=== PATIENT | male | born 1955 | race Hispanic/Latino ===

== ENCOUNTER 2024-12-04 12:54 | Observation (INO) | payer OTHER ==
[~2024-12-04] VITALS: Ht 170.2 cm; Wt 81.6 kg
[2024-12-04 14:11] LABS: IMMATURE GRANULOCYTE ABSOLUTE 0.03 K/uL (0-1); NUCLEATED RED BLOOD CELLS 0.0 % (0.0-0.19); PLATELET COUNT (AUTO) 269 K/uL (130-400); RED BLOOD CELL COUNT(AUTO) 6.30 MIL/uL (4.50-6.20); RED CELL DISTRIBUTION WIDTH 13.7 % (11.0-15.5); WHITE BLOOD COUNT (AUTO) 7.1 K/uL (4.8-10.8)
[2024-12-04 14:12] LABS: CREATININE 1.2 mg/dL (0.5-1.3); GLOMERULAR FILTR. RATE CALC 66.0 mL/min (>90); GLUCOSE,RANDOM 114.0 mg/dL (70-105); SODIUM SERUM 136.0 mmol/L (136-145); UREA NITROGEN, BLOOD 16.0 mg/dL (7-18)
[2024-12-04 14:25] LABS: INR 1.0 (0.85-1.15)
--- NOTE | 2024-12-04 14:51 | HMCIMG ---
EXAM: CR Chest, 1 View. CLINICAL HISTORY: shortness of breath COMPARISON: 12/03 8:17 EDT CR - CHEST 1VW FINDINGS: LUNGS: The lungs show no infiltrate or other acute finding. PLEURAL SPACES: No evidence of pleural effusion or pneumothorax. MEDIASTINUM: Cardiac size and mediastinal contours within normal limits. BONES: No acute osseous abnormality. IMPRESSION: No acute cardiopulmonary pathology is evident. /[place]
--- NOTE | 2024-12-04 16:00 | ERN ---
General Chief Complaint: Other Problems Stated Complaint: ABNORMAL EKG Time Seen by MD: 13:01 History of Present Illness Initial Comments 69-year-old male sent by risk specialist for palpitation. Patient was found to be in atrial fibrillation with rapid ventricular response with the clinic. Patient otherwise has no concerns. Allergies: Coded Allergies: No Known Drug Allergies (Unverified Allergy, Unknown, 12/03/24) Past Medical History Past Medical History: Hypertension, Hypothyroid Past Surgical History: Cholecystectomy, Other Surgical History Other: prostate sx ROS Dictation Palpitations Physical Exam General Appearance: (+) no apparent distress Neck: (+) normal inspection, (+) supple Respiratory: (+) chest non-tender, (+) lungs clear Heart: (+) regular, (+) no gallop Vascular: (+) no edema, (+) normal peripheral pulse Gastrointestinal: (+) soft, (+) non-tender, (+) no organomegaly, (+) bowel sound present Results Laboratory and Microbiology Lab and Micro Result Laboratory Tests Test 12/04/24 13:27 White Blood Count 7.1 K/uL (4.8-10.8) Red Blood Count 6.30 MIL/uL (4.50-6.20) H Hemoglobin 18.5 g/dL (14.0-18.0) H Hematocrit 54.0 % (42-54) Mean Corpuscular Volume 85.7 fL (79-99) Mean Corpuscular Hemoglobin 29.4 pg (27.0-33.0) Mean Corpuscular Hemoglobin Concent 34.3 g/dL (32.0-36.0) Red Cell Distribution Width 13.7 % (11.0-15.5) Platelet Count 269 K/uL (130-400) # Mean Platelet Volume 10.1 fL (7.5-10.5) Immature Granulocyte % (Auto) 0.4 % (0-1) Neutrophils (%) (Auto) 60.5 % (40.0-77.0) Lymphocytes (%) (Auto) 30.5 % (21.0-51.0) Monocytes (%) (Auto) 8.2 % (3.0-13.0) Eosinophils (%) (Auto) 0.1 % (0.0-8.0) Basophils (%) (Auto) 0.3 % (0.0-5.0) Neutrophils # (Auto) 4.3 K/uL (1.8-7.7) Lymphocytes # (Auto) 2.2 K/uL (1.0-4.8) Monocytes # (Auto) 0.6 K/uL (0.1-1.0) Eosinophils # (Auto) 0.01 K/uL (0.00-0.70) Basophils # (Auto) 0.02 K/uL (0.00-0.20) Absolute Immature Granulocyte (auto 0.03 K/uL (0-1) Nucleated Red Blood Cells 0.0 % (0.0-0.19) Prothrombin Time 10.6 SEC (9.6-11.6) Prothromb Time International Ratio 1.00 (0.85-1.15) Activated Partial Thromboplast Time 29.9 SEC (26.3-35.5) Sodium Level 136 mmol/L (136-145) Potassium Level 3.9 mmol/L (3.5-5.1) Chloride Level 97 mmol/L (101-111) L Carbon Dioxide Level 33 mmol/L (21-32) H Blood Urea Nitrogen 16 mg/dL (7-18) Creatinine 1.2 mg/dL (0.5-1.3) Glomerular Filtration Rate Calc 66 mL/min (>90) Random Glucose 114 mg/dL (70-105) H Total Calcium 9.4 mg/dL (8.5-10.1) Troponin I High Sensitivity 24 ng/L (4-75) MDM MDM: Differential diagnosis: Rationale: Tests considered and ordered secondary to shared decision making include: labs, ECG and radiology Previous outside records reviewed: Old ER visits. Risk of complication and/or morbidity or mortality of patient management: None Medications-Per medication reconciliation Need for hospitalization: Patient does meet criteria for hospitalization. Need for emergency major/minor surgery: No There are no social concerns with this patient. Prescription drug management Prescriptions will include symptomatic care Patient's prior external medical records from other ER visits were reviewed by me as indicated. Prior testing and results from previous visits were reviewed. Prior tests were taken into account with medical decision making and resource utilization, independent historian/historians were used to obtain complete medical history. I independently interpreted the test that were performed, results were reviewed by me and considered findings on radiology if ordered. Medical management and examination interpretation discussions were had by me with other qualified healthcare professionals as indicated for the patient's care. ED Course Orders Procedure Category Date Status Time 12 Lead Ekg Tracing- EKG 12/04/24 Logged Technical 13:01 12 Lead Ekg Tracing- EKG 12/04/24 Logged Technical 13:02 Cbc With Differential LAB 12/04/24 Complete 13:02 Basic Metabolic Panel LAB 12/04/24 Complete 13:02 Pt And Ptt LAB 12/04/24 Complete 13:02 Troponin I High LAB 12/04/24 Complete Sensitivity 13:02 Chest 1vw RAD 12/04/24 Resulted 13:02 Metoprolol Tartrate PHA 12/04/24 Complete (Lopressor) 15:00 Current Medications Medications (Trade) Dose Ordered Sig/Jesus Route PRN Reason Start Time Stop Time Status Last Admin Dose Admin Metoprolol Tartrate (loprESSOR) 5 mg ONCE ONCE IV 12/04/24 15:00 12/04/24 15:05 DC 12/04/24 15:01 Vital Signs Date Time Temp Pulse Resp B/P (MAP) Pulse Ox O2 Delivery O2 Flow Rate FiO2 12/04/24 15:01 82 100/68 12/04/24 14:29 112 18 112/72 99 Room Air* 0 21 12/04/24 13:00 97.9 80 16 126/76 99 Room Air* 0 21 12/04/24 12:56 97.9 80 16 126/76 99 Room Air 0 DX & DISP Disposition: Inpatient Departure Impression: Primary Impression: Atrial fibrillation Condition: Stable Referrals: KOLE WARREN M.D. (PCP) VIBHA BAUTISTA MD Dec 04, 2024 16:00
[2024-12-04 16:55] LABS: CREATINE KINASE, TOTAL 64.0 U/L (21-232)
[2024-12-04 19:00] VITALS: BP_SYST 114; BP_SYST 124; BP_DIAS 62; BP_DIAS 74; PULSE 80; PULSE 83; RESP 18; RESP 20; TEMP 97.9; TEMP 98; O2SAT 97
--- NOTE | 2024-12-04 21:21 | CONS ---
CONSULT NOTE: CARDIOLOGY Reason for consult: Atrial fibrillation HPI/story at presentation: This is a pleasant 69-year-old male with past medical history of depression with complaints of shortness of breath fatigue and was found to be in atrial fibrillation with RVR during office visit, 11/2024. He was in the ER for further evaluation and management received IV dose of metoprolol in the ER with conversion to normal sinus rhythm Subjective: 12/04/2024 shortness of breath, tightness Past medical history: See below Allergies, Meds See chart Review of systems Review of Systems Constitutional: Negative for chills and fever. HENT: Negative for ear discharge and ear pain. Eyes: Negative for photophobia and discharge. Respiratory: Negative for cough, sputum production and stridor. Cardiovascular: Negative for chest pain and palpitations. Gastrointestinal: Negative for diarrhea and vomiting. Genitourinary: Negative for frequency. Musculoskeletal: Negative for myalgias. Skin: Negative for rash. Neurological: Negative for focal weakness and seizures. Endo/Heme/Allergies: Negative for polydipsia. Psychiatric/Behavioral: Negative for hallucinations. Vitals see chart PHYSICAL EXAMINATION GENERAL: The patient is alert and oriented*3 HEENT: Nonicteric sclerae, non traumatic HEART: Regular rate and rhythm with no murmurs LUNGS: Clear to auscultation bilaterally ABDOMEN: No acute issues, non tender GENITAL, RECTAL: deferred SKIN: No rash NEUROLOGIC: NFND EXTREMITIES: No edema ASSESSMENT ATRIAL FIBRILLATION With RVR at presentation Heart rates in the 140s Started on anticoagulation with heparin, 11/2024 On beta-ade, 11/2024 Echocardiogram ordered, 11/2024 with normal ejection fraction HYPERTENSION HYPERLIPIDEMIA DIABETES CORE MEASURES Pending OTHER MEDICAL PROBLEMS Benign prostatic hypertrophy Hypothyroidism Cholecystectomy TURP PLAN 12/04/2024 patient has converted to normal sinus rhythm. Overall, doing well, symptoms are better, patient does not feel tired anymore. Can start an ticoagulation. Seen and examined 12/04/2024 at around 8 PM. ATTESTATION I was involved substantially in the care of this patient Number and complexity of problems addressed: 1 acute illness with systemic features Amount and or complexity of data Review of prior external note(s) from each unique source: 2+ Ordering of each unique test : 0 Review of the result(s) of each unique test: 2+ Assessment requiring an independent historian(s): No Independent interpretation of test performed by another MD/QHCP/appropriate source (not separately reported) : No Discussion of management or test interpretation with external MD/QHCP/appropriate source (not separately reported) : No Risk status (cardiac, billing related): Moderate CORNELL KAISER MD Dec 04, 2024 21:21
[2024-12-04 21:54] LABS: CREATINE KINASE, TOTAL 60.0 U/L (21-232)
--- NOTE | 2024-12-04 22:11 | HP ---
[facility] HISTORY & PHYSICAL Date Patient Seen: Dec 04, 2024 Time of Visit: 22:02 Supervising Physician: DR. BREANA ARZATE Primary Care Physician: [ ] Outpatient Specialists: [ ] Inpatient Consults: [employer]ATIONS PROBLEM LIST: 1. AFib with RVR 2. Unstable angina 3. Diabetes type 2 Chief complaint: Chest pressure, palpitations. HPI: Patient is a 69-year-old male with past medical history significant for hypertension, hyperlipidemia, hypothyroidism, diabetes type 2, BPH, and a surgical history of cholecystectomy, TURP, referred to the emergency department by PCP for evaluation of new onset of atrial fibrillation with rapid ventricular response. Patient reports that for the past two days, he has been experiencing chest pressure on and off, today, started having palpitations. Patient was seen by his PCP who referred him to the emergency department for further evaluation and treatment. Per ER report, patient was on AFib with RVR and was given metoprolol 5 mg IV push. At the time of the assessment, patient was on normal sinus rhythm with heart rate in the 80s. In addition, certified marine mechanic has been consulted. PAST MEDICAL HX: see above PAST SURGICAL HX: noncontributory SOCIAL HISTORY: No tobacco, ETOH, or illicit drug use Coded Allergies: No Known Drug Allergies (Unverified Allergy, Unknown, 12/03/24) REVIEW OF SYSTEMS: 12 point ROS reviewed with patient. Pertinent positives mentioned above. Otherwise negative. PHYSICAL EXAM: GENERAL: alert, weak, awake oriented x 3 HEENT: EOMI, Sclera non icteric, moist mucosa NECK: Supple, no JVD, trachea midline LUNGS: Clear breath sounds bilaterally. No wheezes HEART: Regular rate and rhythm. Normal S1 and S2, without murmurs ABD: Abdomen soft, nontender. Bowel sounds present EXT: No clubbing cyanosis or edema NEURO: Alert and oriented to person, follows commands Vital Signs (last 8hr) Date Time Temp Pulse Resp B/P (MAP) Pulse Ox O2 Delivery O2 Flow Rate FiO2 12/04/24 19:00 97.9 80 18 114/62 95 Room Air 12/04/24 19:00 98.1 83 20 124/74 98 Room Air 12/04/24 18:43 97.9 78 20 98/71 99 Room Air* 0 21 12/04/24 16:00 97.9 70 18 114/73 96 Room Air* 0 21 12/04/24 15:01 82 100/68 12/04/24 14:29 112 18 112/72 99 Room Air* 0 21 LABS: Hematology Labs: Test 12/04/24 13:27 Range/Units White Blood Count 7.1 4.8-10.8 K/uL Red Blood Count 6.30 H 4.50-6.20 MIL/uL Hemoglobin 18.5 H 14.0-18.0 g/dL Hematocrit 54.0 42-54 % Mean Corpuscular Volume 85.7 79-99 fL Mean Corpuscular Hemoglobin 29.4 27.0-33.0 pg Mean Corpuscular Hemoglobin Concent 34.3 32.0-36.0 g/dL Red Cell Distribution Width 13.7 11.0-15.5 % Platelet Count 269 # 130-400 K/uL Mean Platelet Volume 10.1 7.5-10.5 fL Immature Granulocyte % (Auto) 0.4 0-1 % Neutrophils (%) (Auto) 60.5 40.0-77.0 % Lymphocytes (%) (Auto) 30.5 21.0-51.0 % Monocytes (%) (Auto) 8.2 3.0-13.0 % Eosinophils (%) (Auto) 0.1 0.0-8.0 % Basophils (%) (Auto) 0.3 0.0-5.0 % Neutrophils # (Auto) 4.3 1.8-7.7 K/uL Lymphocytes # (Auto) 2.2 1.0-4.8 K/uL Monocytes # (Auto) 0.6 0.1-1.0 K/uL Eosinophils # (Auto) 0.01 0.00-0.70 K/uL Basophils # (Auto) 0.02 0.00-0.20 K/uL Absolute Immature Granulocyte (auto 0.03 0-1 K/uL Nucleated Red Blood Cells 0.0 0.0-0.19 % Chemistry Labs: Test 12/04/24 21:26 12/04/24 13:27 Range/Units Total Creatine Kinase 60 21-232 U/L Troponin I High Sensitivity 19.7 4-75 ng/L Sodium Level 136 136-145 mmol/L Potassium Level 3.9 3.5-5.1 mmol/L Chloride Level 97 L 101-111 mmol/L Carbon Dioxide Level 33 H 21-32 mmol/L Blood Urea Nitrogen 16 7-18 mg/dL Creatinine 1.2 0.5-1.3 mg/dL Glomerular Filtration Rate Calc 66 >90 mL/min Random Glucose 114 H 70-105 mg/dL Total Calcium 9.4 8.5-10.1 mg/dL Coagulation Labs: Test 12/04/24 21:25 12/04/24 13:27 Range/Units Activated Partial Thromboplast Time 28.8 26.3-35.5 SEC Prothrombin Time 10.6 9.6-11.6 SEC Prothromb Time International Ratio 1.00 0.85-1.15 DIAGNOSTICS / RADIOLOGY RESULTS: [ ] PLAN NEURO: Minimize central acting medications as possible. Maintain fall precautions, adequate lighting during the day PULMONARY: Supplemental 02 as needed. Maintain aspiration precautions at all times CARDIOVASCULAR: Follow hemodynamics. Vital signs per facility protocol Aspirin 81 mg p.o. daily Atorvastatin 40 mg p.o. at bedtime 2D echo cardiology read Serial troponin levels Continue heparin drip per certified marine mechanic Metoprolol 12.5 mg p.o. b.i.d. GI & NUTRITION: Continue with nutritional support. Continue stool softeners and laxatives as needed. KIDNEYS & ELECTROLYTES: Strict monitoring of intake, output and overall fluid balance. Avoid nephrotoxic medications to the extent possible. Medications to be dosed according to renal function. Monitor electrolytes and replace as needed ENDOCRINE: Maintain blood glucose between 100-180 at all times. Hypoglycemia protocol in place Accu-Cheks a.c. HS Insulin coverage per sliding scale Obtain hemoglobin A1c Obtained TSH INFECTIOUS DISEASE: Trend temperature, WBC and procalcitonin level Follow cultures, deescalate antibiotics as soon as possible. Panculture if new onset fever ONCOLOGY/HEMATOLOGY/COAGULATION: Monitor for s/s of bleeding Monitor hemoglobin, coagulation studies as needed SKIN: Pressure ulcer prevention per facility protocol Specialty mattress ORTHO/REHAB: Continue PT/OT Prophylaxis: Continue GI and DVT prophylaxis Code Status: Full Resuscitation Disposition: TBD Other: Total patient care time exceeds 35 minutes excluding all procedures. Case discussed with Dr. Perea, and the above plan was formulated. EDOUARD KAUR Dec 04, 2024 22:11
[2024-12-04] MEDS ORDERED: GLUCAGON 1MG KIT 1 MG ML IM PRN (22:30)
[2024-12-04] MEDS ORDERED: NITROGLYCERIN 0.4 MG SL TAB SL PRN (22:30)
[2024-12-04] MEDS ORDERED: DEXTROSE 50%-WATER 50 ML DISP.SYRIN IV PRN (22:30)
[2024-12-04 23:00] VITALS: BP 108/69; PULSE 65; RESP 18; TEMP 98.3
[2024-12-05 03:00] VITALS: BP 118/67; PULSE 65; RESP 18; TEMP 98.6
[2024-12-05] MEDS ORDERED: LEVO50TA11 PO (03:19)
[2024-12-05] MEDS ORDERED: VALS160T29 PO (03:19)
[2024-12-05] MEDS ORDERED: IRBE150T34 PO (03:19)
[2024-12-05] MEDS ORDERED: CHLO25TA3 PO (03:19)
[2024-12-05] MEDS ORDERED: ATOR10TA69 PO (03:19)
[2024-12-05 04:56] LABS: IMMATURE GRANULOCYTE ABSOLUTE 0.03 K/uL (0-1); NUCLEATED RED BLOOD CELLS 0.0 % (0.0-0.19); PLATELET COUNT (AUTO) 207 K/uL (130-400); RED BLOOD CELL COUNT(AUTO) 5.49 MIL/uL (4.50-6.20); RED CELL DISTRIBUTION WIDTH 13.6 % (11.0-15.5); WHITE BLOOD COUNT (AUTO) 7.0 K/uL (4.8-10.8)
[2024-12-05 05:17] LABS: CREATINE KINASE, TOTAL 45.0 U/L (21-232); CREATININE 1.0 mg/dL (0.5-1.3); GLOMERULAR FILTR. RATE CALC 82.0 mL/min (>90); GLUCOSE,RANDOM 105.0 mg/dL (70-105); PHOSPHORUS 2.6 mg/dL (2.5-4.9); SODIUM SERUM 137.0 mmol/L (136-145); UREA NITROGEN, BLOOD 20.0 mg/dL (7-18)
[2024-12-05] MEDS ORDERED: PoTASSium chl 10% ELIXIR 20MEQ 20 MEQ/15 ML UDCUP PO PRN (06:00)
[2024-12-05] MEDS: MAGNESIUM 2GM PREMIX 50ML 50 ML IV ONE (06:26)
[2024-12-05] MEDS: PoTASSium chloRIDE 20MEQ ER 20 MEQ ERTAB PO PRN (06:27)
[2024-12-05 07:00] VITALS: BP 112/76; PULSE 65; RESP 17; TEMP 98.3; O2SAT 99
[2024-12-05] MEDS: ASPIRIN 81MG CHEW TAB PO SCH (09:13)
--- NOTE | 2024-12-05 10:23 | EKG ---
[facility] Test Date: 2024-12-04 Test Time: 12:56:58 Pat Name: KELLI SINGER Department: [facility] Room: 204 1 Gender: M Theatrical Dresser: [id number] : [id number] Requested By: VIBHA BAUTISTA Order Number: [id number] Reading MD: Raven Jensen Measurements Intervals [place] Rate: 103 P: 0 MT: 0 QRS: 27 QRSD: 129 T: -6 QT: 361 QTc: 473 Interpretive Statements Atrial fibrillation Right bundle branch block Borderline ST elevation, lateral leads Compared to ECG 12/03/2024 07:49:42 ST (T wave) deviation now present Sinus rhythm no longer present Electronically Signed On 12-07-2024 15:06:39 CDT by Raven Jensen Please click the below link to view image of tracing.
[2024-12-05] MEDS ORDERED: METO25 PO (10:37)
[2024-12-05] MEDS ORDERED: APIX2.5T PO (10:37)
[2024-12-05 11:00] VITALS: BP 106/71; PULSE 65; RESP 18; TEMP 98.1
--- NOTE | 2024-12-05 13:10 | DS ---
[facility] DISCHARGE SUMMARY Date Patient Seen: Dec 05, 2024 Time of Visit: 13:06 Supervising Physician: Dr. Perea Primary Care Physician: Dr. Carla Bose Outpatient Specialists: [ ] Inpatient Consults: DIE OPERATOR HOSPITAL COURSE: HPI (per admitting provider) Patient is a 69-year-old male with past medical history significant for hypertension, hyperlipidemia, hypothyroidism, diabetes type 2, BPH, and a surgical history of cholecystectomy, TURP, referred to the emergency department by PCP for evaluation of new onset of atrial fibrillation with rapid ventricular response. Patient reports that for the past two days, he has been experiencing chest pressure on and off, today, started having palpitations. Patient was seen by his PCP who referred him to the emergency department for further evaluation and treatment. Per ER report, patient was on AFib with RVR and was given metoprolol 5 mg IV push. At the time of the assessment, patient was on normal sinus rhythm with heart rate in the 80s. In addition, metal stud framer has been consulted. The patient was treated for the following problems: Patient was admitted overnight for acute onset atrial fibrillation. Cardiology was consulted in the emergency department and the patient had an echocardiogram reviewed, he was converted with 5 mg of metoprolol in the ED, cardiology advised to discharge the patient with 12.5 mg metoprolol b.i.d. as well as 2.5 mg Eliquis b.i.d.. Patient was educated on the risks and benefits of anticoagulation. Prescription sent to pharmacy, patient to follow up with Cardiology following discharge. ACTIVE PROBLEM LIST FOR THE HOSPITALIZATION: 1. AFib with RVR CHRONIC PROBLEMS: continue previous management per PCP unless otherwise indicated 2. Unstable angina 3. Diabetes type 2 CONTRACT RUNNER FINDINGS/RECOMMENDATIONS: [ ] PROCEDURES: as mentioned above DISCHARGE MEDICATIONS: 12.5 mg metoprolol tartrate b.i.d. 2.5 mg Eliquis b.i.d. Pt hemodynamically stable and afebrile at time of discharge. PCP notified of patients admission, hospital course and discharge. PHYSICAL EXAM: GENERAL: alert, weak, awake oriented x 3 HEENT: EOMI, Sclera non icteric, moist mucosa NECK: Supple, no JVD, trachea midline LUNGS: Clear breath sounds bilaterally. No wheezes HEART: Regular rate and rhythm. Normal S1 and S2, without murmurs ABD: Abdomen soft, nontender. Bowel sounds present EXT: No clubbing cyanosis or edema NEURO: Alert and oriented to person, follows commands FOLLOW-UP: Follow-up with PCP in 2-3 days RECOMMENDATIONS: See Discharge Instructions This case was seen and discussed with my supervising physician. More than 30 minutes spent on discharge process, including evaluation of the patient, discussion with nursing staff, medication reconciliation and follow-up appointments FAWAD KATHLEEN Dec 05, 2024 13:10
--- NOTE | 2024-12-11 18:29 | HMCSR ---
APPROVED REPORT EXAM: Two-dimensional and M-mode echocardiogram with Doppler and color Doppler. Left Ventricle Normal LV size Normal wall motion Normal wall thickness Normal EF, 55% Normal diastolic function Right Ventricle Normal Normal Atria Normal The interatrial septum is intact with no evidence for an atrial septal defect. Normal Aortic Valve Tricuspid No aortic regurgitation is present. There is no aortic valvular stenosis. Mitral Valve The mitral valve is normal in structure. Mild MR Tricuspid Valve The tricuspid valve is normal in structure. Mild TR Pulmonic Valve The pulmonary valve is normal in structure. There is no pulmonic valvular regurgitation. Great Vessels The aortic root is normal in size. The IVC is normal in size and collapses >50% with inspiration. Pericardium NO effusion Conclusion Normal EF, 55% Normal diastolic function Normal wall thickness Normal LV size Normal wall motion Mild MR Mild TR NO effusion Normal pulmonary pressures Study quality was adequate
== END 2024-12-05 15:00 | disposition home or self-care (01) ==
LOC: EDH 12:54 → INTOOBSV 15:59 → EDHIP 15:59 → 2AH 19:00
PROVIDERS: ADMIT Internal Medicine Critical Care Medicine; ATTEND Internal Medicine Critical Care Medicine
DX: I48.91 Unspecified atrial fibrillation (principal); I20.0 Unstable angina; E11.9 Type 2 diabetes mellitus without complications; E03.9 Hypothyroidism, unspecified; E78.5 Hyperlipidemia, unspecified; I10 Essential (primary) hypertension; N40.0 Benign prostatic hyperplasia without lower urinary tract symptoms; Z90.49 Acquired absence of other specified parts of digestive tract; R00.2 Palpitations; R53.83 Other fatigue; Z79.899 Other long term (current) drug therapy; Z98.890 Other specified postprocedural states
CPT/HCPCS: 96376; 96365; 96366 ×2; 96375; 99284; 83036; 84443 ×2; 82550 ×3; 84484 ×5; 80048 ×2; 85025 ×2; 85610; 85730 ×3; 36415 ×2; 71045; 93005; 96368; 83735; 84100; 85378; 82948; 93306; 93356; 76376; 84145; J3490; J1644 ×2; G0378 ×3; J3475; 96367; 96374; 99285